=== PATIENT | male | born 1980 | race Two or more races ===

== ENCOUNTER 2022-10-15 08:32 | Emergency (ER) | payer MEDICAID ==
[~2022-10-15] VITALS: Ht 170.2 cm; Wt 69.0 kg
[2022-10-15] MEDS ORDERED: KETOROLAC 15MG/ML VIAL * ONE (12:15)
[2022-10-15] MEDS ORDERED: METOCLOPRAMIDE HCL 10MG/2ML VIAL IV ONE (12:15)
[2022-10-15] MEDS ORDERED: SODIUM CHLORIDE 0.9% 1,000 ML IV ONE (12:15)
[2022-10-15] MEDS ORDERED: LIDOCAINE HCL/EPINEPHRINE 1%-EPI 1:100,000 20 ML VIAL INFIL ONE (13:15)
[2022-10-15 14:09] VITALS: BP 127/75
== END 2022-10-15 14:10 | disposition home or self-care (01) ==
LOC: ER 08:32
DX: S09.90XA Unspecified injury of head, initial encounter (principal); W11.XXXA Fall on and from ladder, initial encounter; Y93.89 Activity, other specified; Y92.89 Other specified places as the place of occurrence of the external cause; Y99.8 Other external cause status
CPT/HCPCS: 96361; 96374; 99283; J1885; J2765; J7030; Z7610; J3490

== ENCOUNTER 2022-10-21 16:00 | Inpatient (IN) | payer MEDICAID ==
[~2022-10-21] VITALS: Ht 170.2 cm; Wt 72.6 kg
[2022-10-21] MEDS ORDERED: ACETAMINOPHEN 325MG TABLET PO ONE (18:00)
[2022-10-21] MEDS ORDERED: NALOXONE HCL 0.4MG/ML VIAL IV PRN (21:00)
[2022-10-21] MEDS ORDERED: MORPHINE SULFATE 2 MG/ML CPJ (NOT FOR IM USE) IV PRN (21:00)
[2022-10-21] MEDS ORDERED: NICARDIPINE 100 MG in SODIUM CHLORIDE 0.9% 60 ML IV PRN (21:00)
[2022-10-21] MEDS: DEXT 5%/LACTATED RINGERS 1,000 ML IV SCH (21:00)
[2022-10-21] MEDS ORDERED: LEVETIRACETAM 500MG PREMIX 100 ML IV SCH (21:00)
[2022-10-21 21:49] LABS: BASOPHILS % 0.6 % (0.0-2.0); EOSINOPHILS % 0.9 % (0.0-5.0); HEMATOCRIT. 43.4 % (42.0-52.0); LYMPHOCYTES % 24.9 % (20.0-50.0); MEAN CORPUSCULAR HEMOGLOBIN 30.3 pg (28.0-32.0); MEAN CORPUSCULAR VOLUME 87.6 fL (80.0-94.0); MEAN PLATELET VOLUME 8.4 fl (7.4-10.4); NEUTROPHILS % 64.6 % (40.0-76.0); PLATELET 423 x1000/uL (130-400); RED BLOOD CELL COUNT 4.96 mill/uL (4.7-6.1); RED CELL DISTRIBUTION WIDTH 12.6 % (11.6-14.6)
[2022-10-21 21:57] LABS: CHLORIDE 98 mEq/L (98-107)
[2022-10-21 22:03] LABS: INR 1.1; PROTHROMBIN TIME 11.6 sec (9.6-11.0)
[2022-10-21 22:05] LABS: ETHANOL BLOOD < 10 mg/dL
[2022-10-21] MEDS ORDERED: INSULIN REGULAR (HUMULIN R) 300UNITS/3ML VIAL SUBCUT ONE (22:30)
[2022-10-21] MEDS: NICARDIPINE 100 MG in SODIUM CHLORIDE 0.9% 60 ML IV PRN (23:21)
[2022-10-22] VITALS (56 sets, daily range): BP systolic 106–149; BP diastolic 20–105
[2022-10-22] MEDS: DEXAMETHASONE 4MG/ML 1ML VIAL IV SCH ×4 (00:43→16:49)
[2022-10-22] MEDS: DEXT 5%/LACTATED RINGERS 1,000 ML IV SCH ×2 (00:50→14:56)
[2022-10-22] MEDS ORDERED: ACETAMINOPHEN 325MG TABLET PO PRN (07:30)
[2022-10-22] MEDS ORDERED: TRAMADOL 50MG TABLET PO PRN (07:30)
[2022-10-22] MEDS ORDERED: DOCUSATE SODIUM 100MG CAPSULE PO PRN (07:30)
[2022-10-22] MEDS ORDERED: NALOXONE HCL 0.4MG/ML VIAL IV PRN (07:30)
[2022-10-22] MEDS ORDERED: ONDANSETRON HCL 4MG/2ML INJ IV PRN (07:30)
[2022-10-22] MEDS ORDERED: MAGNESIUM/ALUMINUM HYDROXIDE/SIMETHICONE 30ML UDC PO PRN (07:30)
[2022-10-22] MEDS ORDERED: GUAIFENESIN 200MG/10ML SUGAR FREE UDC PO PRN (07:30)
[2022-10-22] MEDS: LEVETIRACETAM 500MG PREMIX 100 ML IV SCH ×2 (11:22→21:06)
[2022-10-22] MEDS ORDERED: DEXTROSE 50% WATER 50ML SYRINGE IV PRN (11:45)
[2022-10-22] MEDS: INSULIN LISPRO 100 UNITS/ML SUBCUT SCH ×3 (12:00→21:06)
[2022-10-22] MEDS: BLOOD SUGAR DIAGNOSTIC STRIP TEST SCH ×2 (16:37→20:52)
[2022-10-22] MEDS ORDERED: GADOTERATE MEGLUMINE 5 MMOL/10 ML VIAL IV ONE (19:31)
[2022-10-22] MEDS: INSULIN GLARGINE 100 UNITS/ML SUBCUT SCH (21:06)
[2022-10-23] VITALS (76 sets, daily range): BP systolic 102–182; BP diastolic 55–107
[2022-10-23] MEDS: DEXAMETHASONE 4MG/ML 1ML VIAL IV SCH ×4 (00:36→18:26)
[2022-10-23 05:27] LABS: BASOPHILS % 0.1 % (0.0-2.0); HEMATOCRIT. 40.2 % (42.0-52.0); HEMOGLOBIN. 13.9 g/dL (14.0-18.0); LYMPHOCYTES % 9.2 % (20.0-50.0); MEAN CORPUSCULAR VOLUME 87.1 fL (80.0-94.0); MEAN PLATELET VOLUME 9.2 fl (7.4-10.4); NEUTROPHILS % 86.7 % (40.0-76.0); PLATELET 396 x1000/uL (130-400); RED BLOOD CELL COUNT 4.62 mill/uL (4.7-6.1); RED CELL DISTRIBUTION WIDTH 12.4 % (11.6-14.6)
[2022-10-23 05:39] LABS: CHLORIDE 100 mEq/L (98-107)
[2022-10-23 05:52] LABS: HDL CHOLESTEROL 44 mg/dL (40-59); LDL CHOLESTEROL 77 mg/dL (5-100)
[2022-10-23] MEDS: BLOOD SUGAR DIAGNOSTIC STRIP TEST SCH ×4 (06:28→21:00)
[2022-10-23] MEDS: INSULIN LISPRO 100 UNITS/ML SUBCUT SCH ×4 (06:33→22:08)
[2022-10-23] MEDS: LEVETIRACETAM 500MG PREMIX 100 ML IV SCH ×2 (08:21→22:08)
[2022-10-23] MEDS: DEXT 5%/LACTATED RINGERS 1,000 ML IV SCH (08:22)
[2022-10-23] MEDS ORDERED: GENTAMICIN SULF 40MG/ML 2ML VIAL ONE (08:59)
[2022-10-23] MEDS ORDERED: THROMBIN (BOVINE) 5000 UNITS/VIAL TOP ONE (08:59)
[2022-10-23] MEDS ORDERED: BACITRACIN 15GM TUBE TOP ONE (08:59)
[2022-10-23] MEDS ORDERED: LIDOCAINE HCL 1%/EPI 1:200,000 30 ML VIAL ONE (08:59)
[2022-10-23] MEDS ORDERED: ROCURONIUM BROMIDE 10MG/ML VIAL 5ML IV ONE (09:49)
[2022-10-23] MEDS ORDERED: NEOSTIGMINE METHYLSULFATE 1MG/ML 10 ML VIAL ONE (09:49)
[2022-10-23] MEDS ORDERED: SUCCINYLCHOLINE CHLORIDE 200MG/10ML IV ONE (09:49)
[2022-10-23] MEDS ORDERED: CEFAZOLIN SODIUM 1000MG/VIAL ONE ×2 (09:49→10:30)
[2022-10-23] MEDS ORDERED: ONDANSETRON HCL 4MG/2ML INJ ONE (09:49)
[2022-10-23] MEDS ORDERED: DEXAMETHASONE 4MG/ML 1ML VIAL ONE (09:49)
[2022-10-23] MEDS ORDERED: PROPOFOL 200MG/20ML VIAL IV ONE (09:49)
[2022-10-23] MEDS ORDERED: GLYCOPYRROLATE 0.2 MG/ML 2ML VIAL ONE ×2 (09:49→09:50)
[2022-10-23] MEDS ORDERED: FENTANYL CITRATE/PF 50MCG/ML 2ML VIAL ONE (09:50)
[2022-10-23] MEDS ORDERED: MIDAZOLAM HCL 2 MG/2 ML VIAL ONE (09:50)
[2022-10-23] MEDS ORDERED: HYDRALAZINE 20MG/ML VIAL ONE (10:30)
[2022-10-23] MEDS ORDERED: CEFAZOLIN SODIUM 1000MG/VIAL IV SCH (14:00)
[2022-10-23] MEDS: MORPHINE SULFATE 4 MG/ML CPJ (NOT FOR IM USE) IV PRN (16:14)
[2022-10-23] MEDS: CEFAZOLIN 1000MG PREMIX 50 ML IV SCH (18:25)
[2022-10-23] MEDS: INSULIN GLARGINE 100 UNITS/ML SUBCUT SCH (22:09)
[2022-10-23] MEDS: NICARDIPINE 100 MG in SODIUM CHLORIDE 0.9% 60 ML IV PRN (23:21)
[2022-10-24] VITALS (43 sets, daily range): BP systolic 101–136; BP diastolic 50–92
[2022-10-24] MEDS: CEFAZOLIN 1000MG PREMIX 50 ML IV SCH ×3 (01:57→16:58)
[2022-10-24] MEDS: DEXAMETHASONE 4MG/ML 1ML VIAL IV SCH ×3 (01:57→11:20)
[2022-10-24 04:47] LABS: CHLORIDE 106 mEq/L (98-107)
[2022-10-24 05:15] LABS: BASOPHILS % 0.2 % (0.0-2.0); HEMOGLOBIN. 12.5 g/dL (14.0-18.0); LYMPHOCYTES % 8.2 % (20.0-50.0); MEAN CORPUSCULAR HEMOGLOBIN 29.5 pg (28.0-32.0); MEAN CORPUSCULAR VOLUME 87.4 fL (80.0-94.0); MEAN PLATELET VOLUME 9.2 fl (7.4-10.4); MONOCYTES % 3.5 % (2.0-8.0); NEUTROPHILS % 88.1 % (40.0-76.0); PLATELET 346 x1000/uL (130-400); RED BLOOD CELL COUNT 4.24 mill/uL (4.7-6.1); RED CELL DISTRIBUTION WIDTH 12.9 % (11.6-14.6)
[2022-10-24] MEDS: BLOOD SUGAR DIAGNOSTIC STRIP TEST SCH ×4 (06:41→21:33)
[2022-10-24] MEDS: INSULIN LISPRO 100 UNITS/ML SUBCUT SCH ×4 (06:45→21:39)
[2022-10-24] MEDS: LEVETIRACETAM 500MG PREMIX 100 ML IV SCH ×2 (08:38→21:38)
[2022-10-24] MEDS: DEXT 5%/LACTATED RINGERS 1,000 ML IV SCH (09:00)
[2022-10-24] MEDS: INSULIN GLARGINE 100 UNITS/ML SUBCUT SCH (21:39)
[2022-10-25] VITALS (36 sets, daily range): BP systolic 113–150; BP diastolic 62–98
[2022-10-25] MEDS: CEFAZOLIN 1000MG PREMIX 50 ML IV SCH ×3 (00:06→18:28)
[2022-10-25] MEDS: BLOOD SUGAR DIAGNOSTIC STRIP TEST SCH ×4 (05:40→21:07)
[2022-10-25 05:42] LABS: BASOPHILS % 0.1 % (0.0-2.0); HEMATOCRIT. 38.7 % (42.0-52.0); HEMOGLOBIN. 12.9 g/dL (14.0-18.0); LYMPHOCYTES % 21.8 % (20.0-50.0); MEAN CORPUSCULAR HEMOGLOBIN 29.6 pg (28.0-32.0); MEAN CORPUSCULAR VOLUME 88.9 fL (80.0-94.0); MEAN PLATELET VOLUME 9.4 fl (7.4-10.4); MONOCYTES % 9.8 % (2.0-8.0); NEUTROPHILS % 68.3 % (40.0-76.0); PLATELET 310 x1000/uL (130-400); RED BLOOD CELL COUNT 4.36 mill/uL (4.7-6.1); RED CELL DISTRIBUTION WIDTH 12.4 % (11.6-14.6)
[2022-10-25 05:50] LABS: CHLORIDE 102 mEq/L (98-107)
[2022-10-25] MEDS: INSULIN LISPRO 100 UNITS/ML SUBCUT SCH ×4 (05:57→21:09)
[2022-10-25] MEDS: MORPHINE SULFATE 4 MG/ML CPJ (NOT FOR IM USE) IV PRN (07:23)
[2022-10-25] MEDS: LEVETIRACETAM 500MG PREMIX 100 ML IV SCH ×2 (08:43→21:08)
[2022-10-25] MEDS: INSULIN GLARGINE 100 UNITS/ML SUBCUT SCH (21:08)
[2022-10-26] VITALS: BP 112/73
[2022-10-26 04:00] VITALS: BP 119/72
[2022-10-26] MEDS: BLOOD SUGAR DIAGNOSTIC STRIP TEST SCH (06:25)
[2022-10-26 08:00] VITALS: BP 107/69
[2022-10-26] MEDS: LEVETIRACETAM 500MG PREMIX 100 ML IV SCH (08:18)
[2022-10-26] MEDS: INSULIN LISPRO 100 UNITS/ML SUBCUT SCH (08:24)
[2022-10-26 11:41] VITALS: BP 127/85
[2022-10-26 12:00] VITALS: BP 127/85
== END 2022-10-26 12:00 | disposition home or self-care (01) | DRG 20 ==
LOC: ER 16:00 → MICUSO 23:17 → ENRESERV 10-22 07:06 → 6EST 10-25 15:35
PROVIDERS: ADMIT Hospitalist; ATTEND Hospitalist
PROC: 00C40ZZ Extirpation of Matter from Intracranial Subdural Space, Open Approach (ICD-10-PCS; principal; 2022-10-23)
DX: S06.5XAA Traumatic subdural hemorrhage with loss of consciousness status unknown, initial encounter (principal); G93.40 Encephalopathy, unspecified; E87.1 Hypo-osmolality and hyponatremia; G81.91 Hemiplegia, unspecified affecting right dominant side; R47.01 Aphasia; E11.65 Type 2 diabetes mellitus with hyperglycemia; G43.909 Migraine, unspecified, not intractable, without status migrainosus; Z20.822 Contact with and (suspected) exposure to COVID-19; R27.0 Ataxia, unspecified; Z87.820 Personal history of traumatic brain injury; Z91.81 History of falling; Z87.828 Personal history of other (healed) physical injury and trauma; W11.XXXA Fall on and from ladder, initial encounter; Y92.009 Unspecified place in unspecified non-institutional (private) residence as the place of occurrence of the external cause; Y93.89 Activity, other specified; Y99.8 Other external cause status
CPT/HCPCS: 36415; 70553; 71045; 80053; 80061; 80320; 82010; 82962; 83036; 85025; 86850; 86900; 87426; 88304; 93005; 97116; 97162; 97166; 99291; A9577; J0330; J0360; J0690; J1100; J1580; J1815; J1953; J2250; J2270; J2405; J2704; J2710; J3010; J3490; J7050; J7120; C1713; G0480

== ENCOUNTER 2022-11-02 09:21 | Emergency (ER) | payer MEDICAID, OTHER ==
[~2022-11-02] VITALS: Ht 167.6 cm; Wt 75.0 kg
[2022-11-02 09:26] VITALS: BP 164/92
== END 2022-11-02 11:45 | disposition home or self-care (01) ==
LOC: ER 10:23
DX: Z48.02 Encounter for removal of sutures (principal)
CPT/HCPCS: 99281

== ENCOUNTER 2022-11-19 13:06 | Emergency (ER) | payer SELFPAY ==
[~2022-11-19] VITALS: Ht 170.2 cm; Wt 71.0 kg
[2022-11-19 13:22] VITALS: BP 146/80
[2022-11-19] MEDS ORDERED: ACETAMINOPHEN 325MG TABLET PO NR (15:45)
[2022-11-19] MEDS ORDERED: SODIUM CHLORIDE 0.9% 1,000 ML IV NR (15:45)
[2022-11-19] MEDS ORDERED: METOCLOPRAMIDE HCL 10MG/2ML VIAL IV NR (15:45)
[2022-11-19 15:56] LABS: BASOPHILS % 0.5 % (0.0-2.0); EOSINOPHILS % 1.2 % (0.0-5.0); HEMATOCRIT. 43.4 % (42.0-52.0); HEMOGLOBIN. 14.6 g/dL (14.0-18.0); LYMPHOCYTES % 31.9 % (20.0-50.0); MEAN CORPUSCULAR HEMOGLOBIN 29.4 pg (28.0-32.0); MEAN CORPUSCULAR VOLUME 87.5 fL (80.0-94.0); MEAN PLATELET VOLUME 9.2 fl (7.4-10.4); MONOCYTES % 8.5 % (2.0-8.0); NEUTROPHILS % 57.9 % (40.0-76.0); PLATELET 278 x1000/uL (130-400); RED BLOOD CELL COUNT 4.96 mill/uL (4.7-6.1)
[2022-11-19 16:05] LABS: PARTIAL THROMBOPLASTIN TIME 31.9 sec (23.4-31.0); PROTHROMBIN TIME 10.9 sec (9.6-11.0)
[2022-11-19 16:09] LABS: CHLORIDE 100 mEq/L (98-107)
[2022-11-19 17:57] LABS: BG BASE EXCESS 0.1 mmol/L (-2.0-2.0); BG CARBOXYHEMOGLOBIN 0.5 % (0.5-1.5); BG DEOXYHEMOGLOBIN 2.5 % (0.0-5.0); BG FRACTION INSPIRED OXYGEN 21; BG METHEMOGLOBIN 0.4 % (0.0-1.5); BG OXYGEN SATURATION 97.5 % (92.0-98.5); BG OXYHEMOGLOBIN 96.6 % (94.0-97.0); BG PCO2 41.5 mmHg (35.0-45.0); BG PH 7.397 (7.350-7.450); BG PO2 98.1 mmHg (75.0-100.0); BG SAMPLE SITE LEFT RADIAL; BG TOTAL HEMOGLOBIN 14.4 g/dL (12.0-18.0); BG VENT MODE ROOM AIR
[2022-11-19] MEDS ORDERED: TOPUD MT (18:22)
== END 2022-11-19 18:36 | disposition home or self-care (01) ==
LOC: ER 13:06
DX: R51.9 Headache, unspecified (principal); Z98.890 Other specified postprocedural states
CPT/HCPCS: 36415; 36600; 70450; 80048; 82375; 82805; 85025; 85610; 85730; 96374; 99285; J2765

== ENCOUNTER 2022-11-22 23:13 | Emergency (ER) | payer SELFPAY ==
[~2022-11-22] VITALS: Ht 170.2 cm; Wt 65.4 kg
[~2022-11-22 23:13] MED LIST: TOPUD MT
[2022-11-23] MEDS ORDERED: ONDANSETRON HCL 4MG/2ML INJ IV STA (00:44)
[2022-11-23] MEDS ORDERED: MORPHINE SULFATE 4 MG/ML CPJ (NOT FOR IM USE) IV STA (00:44)
[2022-11-23] MEDS ORDERED: SODIUM CHLORIDE 0.9% 1,000 ML IV ONE (00:45)
[2022-11-23 01:10] LABS: BASOPHILS % 0.5 % (0.0-2.0); HEMATOCRIT. 41.7 % (42.0-52.0); HEMOGLOBIN. 14.3 g/dL (14.0-18.0); MEAN CORPUSCULAR HEMOGLOBIN 29.6 pg (28.0-32.0); MEAN CORPUSCULAR VOLUME 86.5 fL (80.0-94.0); MEAN PLATELET VOLUME 8.9 fl (7.4-10.4); MONOCYTES % 9.7 % (2.0-8.0); NEUTROPHILS % 54.8 % (40.0-76.0); PLATELET 301 x1000/uL (130-400); RED BLOOD CELL COUNT 4.82 mill/uL (4.7-6.1); RED CELL DISTRIBUTION WIDTH 12.9 % (11.6-14.6)
[2022-11-23 01:25] LABS: CHLORIDE 101 mEq/L (98-107)
[2022-11-23 01:32] LABS: BETA HYDROXYBUTYRATE 0.5 mMol/L (0.0-0.3)
[2022-11-23] MEDS ORDERED: METF-414 MT (03:09)
[2022-11-23] MEDS ORDERED: IBUP-2029 MT (03:09)
[2022-11-23 03:24] VITALS: BP 124/81
== END 2022-11-23 03:26 | disposition home or self-care (01) ==
LOC: ER 23:13
DX: E11.65 Type 2 diabetes mellitus with hyperglycemia (principal); I62.00 Nontraumatic subdural hemorrhage, unspecified; R51.9 Headache, unspecified; Z98.890 Other specified postprocedural states
CPT/HCPCS: 36415; 70450; 80053; 82010; 82962; 85025; 96361; 96374; 96375; 99285; J2270; J2405; J7030; Z7610